=== PATIENT | male | born 1945 | race Caucasian/White ===

== ENCOUNTER 2022-03-29 05:45 | Day surgery (SDC) | payer MEDICARE, OTHER ==
[~2022-03-29] VITALS: Ht 185.4 cm; Wt 95.5 kg
[~2022-03-29 05:45] MED LIST: CIALIS5 MG PO; COZAAR50 MG PO; FLOMAX0.4 MG PO; LIPITOR10 MG; NORVASC10 MG PO; PROSCAR5 MG PO
--- NOTE | 2022-03-29 09:15 | NUR ---
03/29/22 0915 Christy Leonard 0842 PT ARRIVED IN PACU NON RESPONSIVE TO NOXIOUS STIMULI. 0846 PT REACTIVE. 0850 C/O URGE TO VOID. URINAL IN PLACE. VOIDED 50ML OF PINK COLORED URINE. 0910 TO DS. REPORT GIVEN TO LEONARDA.
--- NOTE | 2022-03-29 09:24 | NUR ---
PT TRANSPORTED BACK TO DAY SURGERY. PT IN TX ROOM WITH . PT REPORTS NO PAIN OR NAUSEA. PT HAS URINAL IN BETWEEN LEGS. PT REPORTS URGE TO URINATE. TIMOTHY RN REPORTS PT URINATING [address] FONTENOT STATES THIS URINE AMOUNT IS SUFFICIENT FOR DISCHARGE. THIS RN INFORMED PT TO HANG URINAL ON BEDSIDE RAIL FOR RN TO MEASURE. PT REQUESTS COFFEE AND APPLE SAUCE. CALL LIGHT WITHIN REACH.
--- NOTE | 2022-03-29 10:00 | NUR ---
PT ALERT, ORIENTED AND SUPPORTED BY HIS ANA. PT SEEMS INFORMED, ANA WILL REMAIN FOR DC. ALL QUESTIONS ASKED ANSWERED. PT REQUESTED PRAYER, WILL FOLLOW NEEDED
--- NOTE | 2022-03-29 10:13 | NUR ---
PT RESTING IN BED REQUESTING COFFEE AND CRACKERS. THIS RN EMPTIED URINAL. PT AT BEDSIDE. PT GIVEN CRACKERS AND COFFEE.
--- NOTE | 2022-03-29 10:45 | NUR ---
DISCHARGE INSTRUCTIONS GIVEN TO PT AND . QUESTIONS AND CONCERNS ADDRESSED. PRESCRIPTION HANDED TO PT'S . PT DISCHARGE FRM DAY SURGERY VIA WHEELCHAIR TO PERSONAL VEHICLE.
--- NOTE | 2022-03-30 19:21 | OR ---
[facility] [address] [place], [place] [address] Signed DATE OF OPERATION: 03/29/2022 SURGEON: Fawad Fontenot MD PREOPERATIVE DIAGNOSES: 1. 0.5 cm flat papillary lesion present just medial to the right ureteral orifice, suggestive of active tumor recurrence. 2. 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 3. Seymour 6 prostate cancer. POSTOPERATIVE DIAGNOSES: 1. 0.5 cm flat papillary lesion present just medial to the right ureteral orifice, suggestive of active tumor recurrence. 2. 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 3. Seymour 6 prostate cancer. 4. Worsening nodular prostate on digital rectal examination. NAMES OF PROCEDURES: 1. Diagnostic cystoscopy with right retrograde pyelogram. 2. Transurethral resection of bladder tumor-small. 3. Digital rectal examination under anesthesia. ANESTHESIA: General. ESTIMATED BLOOD LOSS: Minimal. COMPLICATIONS: None. SPECIMENS: Resected area of tumor recurrence, sent to pathology for evaluation. DRAINS: None. INDICATIONS FOR PROCEDURE: Mr. Herrera is a very pleasant 76-year-old gentleman with a history of Wanda 3 + 3 prostate cancer diagnosed in 2019, who presents today to undergo cystoscopy with Electronically Signed By: FAWAD FONTENOT MD 03/30/221920 PATIENT NAME: KENDRA HERRERA OPERATIVE REPORT DATE OF : 45 REPORT #: [id number] PHYSICIAN: FAWAD FONTENOT MD PCP: XAVIER CHOPRA MD REPORT IS CONFIDENTIAL AND NOT TO BE RELEASED WITHOUT AUTHORIZATION [facility] [address] [place], [place] [address] Signed resection of suspicious lesion present in the area of his prior bladder tumor resection. The patient has a history of superficial high-grade bladder cancer, diagnosed in early 2019. His initial bladder tumor was approximately 2.5 cm in size and was located just superior and medial to the right ureteral orifice. On a recent cystoscopy, the patient was noted to have a 0.5 cm area of plaque like hyperplastic cells that appeared to be very suspicious for recurrence of his high-grade bladder cancer. These were located in the area of his prior tumor resection, more specifically just superior and medial to the right ureteral orifice. He presents today to undergo removal of the tumor recurrence. There are plans for him to go undergo intravesical BCG maintenance as soon as he heals from today's tumor resection. OPERATIVE FINDINGS: 1. On cystoscopy, there is no evidence of any overt bladder tumors or bladder stones. Bilateral ureteral orifices are in their normal anatomic location effluxing clear urine. There is a 5 mm plaque like area of hyperplastic cells that appears just medial and superior to the right ureteral orifice. This is located in the area of his previous tumor resection and is very suspicious for tumor recurrence. This was resected using a bipolar loop today without incident. The remainder of the cystoscopy revealed no evidence of any other masses or lesions. 2. A right retrograde pyelogram was performed, which revealed no evidence of any filling defects within the right ureter or within the right renal pelvis. 3. Digital rectal examination reveals two very pronounced nodules of the prostate. One is in the left mid lobe and the other is near the central sulcus. This appears advanced in comparison with Dr. Hansen's prior exam which stated that the nodules were "subtle on palpation.". DESCRIPTION OF PROCEDURE: After informed consent was obtained, the patient was taken back to the operating room. He was transferred from the [facility] to the operating room table, where general anesthesia was induced. He was placed in the dorsal lithotomy position and his genitalia prepped and draped in sterile fashion. Using a 30-degree lens on a 22.5-Dominican introducer, a rigid cystoscope was inserted through his urethra into his bladder under direct visualization. Panendoscopic views of bladder were then obtained. Please see above findings. Attention was turned to the right ureteral orifice. A cone-tipped catheter was advanced into the right distal ureter and a right retrograde pyelogram was performed. Please see above findings. I then took a closer look at the area of the bladder and in question. It is about 5 mm in size and is just medial and superior to the right ureteral orifice. There is obvious area of hyperplastic cells along with satellite lesion just lateral to this, which consist of very small abnormal appearing cells. Before inserting the resectoscope, I did dilate the patient's urethral meatus from 16-Dominican to 28-Dominican using Lisa sounds without difficulty. I then advanced a 26-Dominican sheath using a visual obturator. The visual obturator was then switched out Electronically Signed By: FAWAD FONTENOT MD 03/30/221920 PATIENT NAME: KENDRA HERRERA OPERATIVE REPORT DATE OF : 45 REPORT #: [id number] PHYSICIAN: FAWAD FONTENOT MD PCP: XAVIER CHOPRA MD REPORT IS CONFIDENTIAL AND NOT TO BE RELEASED WITHOUT AUTHORIZATION [address] [address] Signed for the resectoscope with a 24-Dominican bipolar loop. The area of tumor recurrence was resected using the bipolar loop without difficulty. I then cauterized the biopsy bed. All the while, I was very aware of the presence of the right ureteral orifice and did not cauterize near this area. The specimen was extracted from the patient's bladder using a Forest syringe. Once I was satisfied that hemostasis had been achieved, I removed the resectoscope and emptied the patient's bladder completely. A digital rectal examination was then performed. Please see above findings. The procedure was then terminated. The patient tolerated the procedure well without any complication. He will now be transferred to the postanesthesia care unit in stable condition. DISPOSITION: I discussed the details of today's procedure with the patient's and answered all of her questions. I informed her that I successfully resected the area of tumor recurrence today without incident. He will be eligible to receive a three week course of maintenance BCG at least two months from today. Once he is completely healed from today's procedure. I also notified the patient's of what I appear is progression of the nodules present on today's digital rectal examination. He did have a nodule prostate before, but I feel as though the nodules are significantly more prominent now. It also has been two years since the patient was diagnosed, so given the results of today's rectal examination and the fact that he is around two years post his initial diagnosis. I believe the patient is due for another transrectal ultrasound-guided biopsy of the prostate. I made this very clear to the patient's today. She believes the patient is very overwhelmed in managing both his bladder and prostate cancer and would like to discuss my recommendation with him today. We will decide on the next course of action for his prostate cancer. When I notify them of the biopsy results from today's procedure. It is my recommendation that we move to performing a biopsy prostate biopsy before offering the patient the maintenance BCG. The patient's was made aware of this today. He will be sent home today with Cipro 500 mg one tablet p.o. b.i.d. for five days, along with oxycodone 5 mg one tablet p.o. q.6 hours p.r.n. pain, dispensed #15. The patient will be scheduled return to clinic to see me on May 06, 2022 for a postoperative evaluation. MD SEBASTIEN Gutierres/JOSE GUADALUPEL /[id number] Electronically Signed By: FAWAD FONTENOT MD 03/30/221920 PATIENT NAME: KENDRA HERRERA OPERATIVE REPORT DATE OF : 45 REPORT #: [id number] PHYSICIAN: FAWAD FONTENOT MD PCP: XAVIER CHOPRA MD REPORT IS CONFIDENTIAL AND NOT TO BE RELEASED WITHOUT AUTHORIZATION [address] [place] [address] Signed Copies: ~ Electronically Signed By: FAWAD FONTENOT MD 03/30/221920 PATIENT NAME: KENDRA HERRERA OPERATIVE REPORT DATE OF : 45 REPORT #: [id number] PHYSICIAN: FAWAD FONTENOT MD PCP: XAVIER CHOPRA MD REPORT IS CONFIDENTIAL AND NOT TO BE RELEASED WITHOUT AUTHORIZATION
--- NOTE | 2022-04-02 15:10 | PATH ---
[facility] [address] [place] [address] Signed SPECIMEN(S): A BLADDER LESION SPECIMEN SOURCE: A. BLADDER LESION CLINICAL HISTORY: Recurrence of bladder tumor; gross hematuria; malignant neoplasm of posterior bladder FINAL PATHOLOGIC DIAGNOSIS: Bladder lesion, TUR: - Low grade papillary urothelial carcinoma. - Stromal invasion: Negative. - Detrusor muscle: Present, negative for tumor invasion. COMMENT: As part of [facility]' Quality Improvement Program, this case was reviewed by another member of our pathology staff. JVR:ROSALBA:chuy:C1NR MICROSCOPIC EXAMINATION: Histologic sections of all submitted blocks are examined by light microscopy. These findings, together with the gross examination, support the pathologic diagnosis. Immunostains are performed with appropriate controls on block (A1) and show the following: - CK20: Negative for full thickness staining in the area of concern. - CK5: Basal staining in the urothelium. JVR:chuy GROSS DESCRIPTION: The specimen, labeled "MB, bladder lesion," is received in formalin and consists of single fragment of chávez soft tissue measuring 0.5 cm greatest dimension. Entirely submitted in cassette A1. HH (under the direct supervision of a pathologist) The Gross Description was prepared using a voice recognition system. The report was reviewed for accuracy; however, sound-alike word errors, addition and/or deletions may occur. If there is any question about this report, please contact Client Services. ADDITIONAL NOTES: PATIENT NAME: KENDRA GRACE PATHOLOGY DATE OF : 45 REPORT #: [id number] PHYSICIAN: AMAYA MYRICK PCP: XAVIER CHOPRA MD REPORT IS CONFIDENTIAL AND NOT TO BE RELEASED WITHOUT AUTHORIZATION [facility] [address] [place], [place] [address], [place] [address] Signed Immunohistochemical and/or in situ hybridization studies were performed on this case with the appropriate positive controls that react as expected. This test was developed and its performance characteristics determined by [facility]. It has not been cleared or approved by the U.S. Food and Drug Administration. The FDA has determined that such clearance or approval is not necessary. This test is used for clinical purposes. It should not be regarded as investigational or for research. [facility] is certified under the Clinical Laboratory Improvement Amendments of 1988 (CLIA) as qualified to perform high complexity clinical laboratory testing. This assay has not been validated for specimens that have been decalcified. PERFORMING LABORATORY: The technical component was performed by [facility], [address] [place] [id number] (CLIA# [id number]). Professional interpretation was performed by [facility], [address] [place] [id number] (CLIA#: [id number]). Diagnostician: Fausto Quiles MD Pathologist Electronically Signed 04/02/2022 Copies: ~ PATIENT NAME: KENDRA GRACE PATHOLOGY DATE OF : 45 REPORT #: [id number] PHYSICIAN: AMAYA MYRICK PCP: XAVIER CHOPRA MD REPORT IS CONFIDENTIAL AND NOT TO BE RELEASED WITHOUT AUTHORIZATION
== END 2022-03-29 10:35 | disposition home or self-care (01) ==
LOC: DS 05:45
PROVIDERS: ATTEND Urology
PROC: 0TBB8ZZ Excision of Bladder, Via Natural or Artificial Opening Endoscopic (ICD-10-PCS; principal; 2022-03-29 07:30)
DX: C67.9 Malignant neoplasm of bladder, unspecified (principal); C61 Malignant neoplasm of prostate; Z85.51 Personal history of malignant neoplasm of bladder; N40.1 Benign prostatic hyperplasia with lower urinary tract symptoms; N13.8 Other obstructive and reflux uropathy; N52.9 Male erectile dysfunction, unspecified
CPT/HCPCS: 51798; 74420; J0131; J0690; J1100; J2001; J2250; J2405; J2704; J7121; Q9967